=== PATIENT | female | born 1990 | race Caucasian/White ===

== ENCOUNTER 2017-02-09 13:26 | Day surgery (SDC) | payer OTHER ==
[~2017-02-09] VITALS: Ht 162.6 cm; Wt 61.3 kg
[~2017-02-09 13:26] MED LIST: ACETAMINOP650 MG/20. PO; AMANTADINE100 MG PEG; AMANTADINE50 MG/5 ML GT; AMBIEN CR6.25 MG GT; ANTACID500 MG PO; ATIVAN2 MG/ML IV; ATIVAN4 MG/1 ML IV; ATROVENT 00.5 MG/2.5 IH; AUGMENTIN200 MG/5 M GT; BACLOFEN; BACLOFEN PUMP IT; BACTRIM GT; BACTRIM,SEPTRA S1 ML GT; BISACODYL SUPP10 MG PR; CARAFATE100 MG/ML GT; CERTA VITE9 MG/15 ML PO; CERTA-VITE240 ML GT; CERTAGEN TABLE1 EACH GT; CERTAGEN237 ML GT; CERTAVITE WITH1 EAC1 GT; CHILDREN'S160 MG/22 GT; CLONAZEPAM0.5 MG G-TUBE; COLACE; COLACE10 MG/ML G-TUBE; COLACE10 MG/ML GT; COLACE100 MG PEG; CORTAID,HYTO28.35 G2 TP; Colace GT; DDAVP0.1 MG GT; DDAVP0.1 MG PO; DESMOPRESSIN A0.1 MG GT; DILANTIN GT; DILANTIN-1125 MG/5 M GT; DILANTIN-1125 MG/5 M PO; DILANTIN100 MG PEG; DILANTIN30 MG PO; DILANTIN50 MG PO; DILAUDID1 MG/ML IV; DILAUDID2 MG GT; DILAUDID2 MG J-TUBE; DORIBAX500 MG IV; DULCOLAX STOOL100 MG PR; DULCOLAX10 MG PR; DUONEB 2.5-0.5 M3 ML AEROSOL; DUONEB3 ML IH; DURAGESIC25 MCG TD; Desyrel GT; Dilantin GT; Duragesic TD; FENTANYL PATCH; FEROSUL220 MG/51 GT; FEVERALL80 MG PR; FLAGYL500 MG GT; FLORASTOR250 MG GT; FLORASTOR250 MG PO; FOLIC ACID1 MG GT; FOLVITE1 MG G-TUBE; FOLVITE1 MG GT; Folvite GT; GABITRIL2 MG GT; GABITRIL4 MG GT; GENTEAL MILD25 ML BOTH EYES; GENTEAL TEARS 015 ML BOTH EYES; GLUCAGEN1 M1 PO; HYDROMORPHONE HCL; K-SOL20 MEQ/15 GT; KEPPRA ORAL100 MG/ML GT; KEPPRA100 MG/1 M GT; Klonopin GT; LEVAQUIN750 MG GT; LEVETIRACE500 MG/5 M PEG; LIORESAL I2000 MCG/1; LIORESAL I2000 MCG/1 IT; LIORESAL I500 MCG/ML IT; LOPRESSOR5 MG/5 M1 IV; LOPRESSOR50 MG G-TUBE; LORAZEPAM I2 MG/1 ML GT; LORAZEPAM2 MG/1 M1 IV; LORAZEPAM2 MG/1 M1 PEG; LOVENOX40 MG/0.4 PO; LOVENOX40 MG/0.4 SC; Lopressor GT; MAGIC MOUTHWASH1 ML MM; METHYLPHENIDATE10 M1 GT; METHYLPHENIDATE5 MG GT; METOPROLOL TART50 MG G-TUBE; MYCOSTATIN5 ML PO; Mucomyst,Mucosol 20% IH; NASOGEL SALIN28.4 ML BOTH NARES; NEBCIN40 MG/ML IV; NEUTRA-PHOS,1 PACKET GT; NEXIUM40 M1 GT; NIZORAL 2% CREA15 GM TP; NOVOLOG PE100 UNITS/ SC; ONDANSETRON HCL4 MG GT; ORAL ANESTHETIC7 GM MM; PARLODEL; PHENADOZ12.5 MG PR; PHENERGAN GT; PHENYTOIN; PREVACID SOLUTA30 M1 GT; PREVACID SOLUTA30 MG GT; PROSOURCE NO CA30 ML GT; Parlodel GT; REGLAN10 MG/10 M GT; REGLAN10 MG/10 M PO; REGLAN5 MG GT; RITALIN10 MG; RITALIN10 MG GT; ROBITUSSIN100 MG/5 M PO; SALINE FLUSH 5 M5 ML IV; SENNA SYRUP; SENNA176 MG/5 M PO; SENNA8.8 MG/5 M GT; SENOKOT5 ML; SENOKOT5 ML GT; STOOL SOFT50 MG/5 ML GT; SYMMETREL GT; THERAGRAN5 ML GT; THIAMINE,VITAM100 MG; THIAMINE,VITAM100 MG GT; TOBRAMYCIN IV; TRAZODONE HCL50 MG GT; TUMS500 MG PEG; TYGACIL50 MG IV; TYLENOL LI325 MG/10. GT; TYLENOL LI325 MG/10. PO/PEG; TYLENOL650 MG/20. GT; Theragran-M,Centrum, GT; Tums GT; VALTREX50 MG/ML GT; VITAMIN B-1100 M1 GT; VITAMIN C500 MG/15; Vancomycin IV; XOPENEX1.25 MG/0. IH; ZEGERID; ZEGERID40 MG GT; ZEGERID40 MG PEG; ZOFRAN4 MG/2 ML IV; ZOSYN3.375 GM/5 IV; ZYVOX20 MG/1 ML GT; Zofran IV; [UNRECOGNIZED DRUG - OTHER] BOTH EYES; [UNRECOGNIZED DRUG - OTHER] BOTH EYES; [UNRECOGNIZED DRUG - OTHER] GT; [UNRECOGNIZED DRUG - OTHER] GT; [UNRECOGNIZED DRUG - OTHER] PO
[2017-02-09 13:51] VITALS: BP 96/60
[2017-02-09 16:45] VITALS: BP 95/63
[2017-02-09 17:31] VITALS: BP 95/62
== END 2017-02-09 17:39 ==
LOC: SDC 13:26
DX: Z45.49 Encounter for adjustment and management of other implanted nervous system device (principal); E23.2 Diabetes insipidus; R40.3 Persistent vegetative state; I62.9 Nontraumatic intracranial hemorrhage, unspecified; Z93.1 Gastrostomy status; Z85.41 Personal history of malignant neoplasm of cervix uteri
CPT/HCPCS: 94799; J0690; J1100; J2250; J2405; J3010; J3370